=== PATIENT | female | born 1985 | race Caucasian/White ===

== ENCOUNTER 2025-04-07 18:00 | Emergency (ER) | payer MEDICAID ==
[~2025-04-07] VITALS: Ht 167.6 cm; Wt 66.0 kg
[2025-04-07 18:11] VITALS: O2SAT 99
[2025-04-07] MEDS ORDERED: FLUT9.9S BOTHNSTRLS (19:46)
[2025-04-07 21:17] VITALS: BP 95/65; PULSE 64; RESP 16; TEMP 36.8; O2SAT 98
== END 2025-04-07 21:21 | disposition home or self-care (01) ==
LOC: ER 18:00
DX: H69.93 Unspecified Eustachian tube disorder, bilateral (principal); H91.93 Unspecified hearing loss, bilateral; Z59.71 Insufficient health insurance coverage
CPT/HCPCS: 82962; 93005; 99283

== ENCOUNTER 2025-04-23 12:43 | Emergency (ER) | payer MEDICAID ==
[~2025-04-23] VITALS: Ht 162.6 cm; Wt 71.0 kg
[~2025-04-23 12:43] MED LIST: FLUT9.9S BOTHNSTRLS
[2025-04-23 13:03] VITALS: O2SAT 99
[2025-04-23] MEDS: LACTATED RINGERS 1,000 ML IV SCH (15:18)
[2025-04-23] MEDS: ACETAMINOPHEN 1000MG/100ML 100 ML IV ONE (15:18)
[2025-04-23] MEDS: METOCLOPRAMIDE HCL 10MG/2ML VIAL IV ONE (15:21)
[2025-04-23 15:30] LABS: BASOPHILS % 0.5 % (0.0-2.0); EOSINOPHILS % 0.2 % (0.0-5.0); HEMATOCRIT. 35.9 % (36.0-48.0); HEMOGLOBIN. 11.9 g/dL (12.0-16.0); LYMPHOCYTES % 9.6 % (20.0-50.0); MEAN PLATELET VOLUME 9.6 fl (7.4-10.4); MONOCYTES % 6.6 % (2.0-8.0); NEUTROPHILS % 83.1 % (40.0-76.0); PLATELET 249 x1000/uL (130-400); RED BLOOD CELL COUNT 4.04 mill/uL (4.2-5.4); RED CELL DISTRIBUTION WIDTH 13.3 % (11.6-14.6)
[2025-04-23 15:41] LABS: HCG SCREEN NEGATIVE
[2025-04-23 15:42] LABS: CREATININE 0.5 mg/dL (0.6-1.0); UREA NITROGEN BLOOD 8 mg/dL (9-23)
[2025-04-23 16:31] VITALS: BP 114/62; PULSE 66; RESP 17; TEMP 36.7; O2SAT 100
== END 2025-04-23 16:32 | disposition home or self-care (01) ==
LOC: ER 12:43 → CMPBEDREQ 04-24 08:20
DX: R51.9 Headache, unspecified (principal)
CPT/HCPCS: 99285; 96365; 70450; 96375; 80048; 84703; 85025; 36415; J2765; J0131

== ENCOUNTER 2025-04-25 14:30 | Emergency (ER) | payer MEDICAID ==
[~2025-04-25] VITALS: Ht 167.6 cm; Wt 66.0 kg
[2025-04-25 14:35] VITALS: TEMP 37; O2SAT 100
[2025-04-25] MEDS ORDERED: PROCHLORPERAZINE 10MG/2ML VIAL IV ONE (17:15)
[2025-04-25] MEDS: SODIUM CHLORIDE 0.9% 1,000 ML IV ONE (17:54)
[2025-04-25 18:24] LABS: HCG SCREEN NEGATIVE
[2025-04-25] MEDS: SUMATRIPTAN SUCCINATE 6MG/0.5ML VIAL SUBCUT ONE (18:28)
[2025-04-25] MEDS: DIPHENHYDRAMINE 50MG/ML VIAL IV ONE (18:29)
[2025-04-25] MEDS: KETOROLAC 30MG/ML VIAL IV ONE (18:29)
[2025-04-25] MEDS: METOCLOPRAMIDE HCL 10MG/2ML VIAL IV ONE (18:29)
[2025-04-25] MEDS: DEXAMETHASONE 10 MG/ML VIAL IV ONE (18:29)
[2025-04-25] MEDS ORDERED: SUMA100T16 MT (20:36)
[2025-04-25] MEDS ORDERED: KETO10TA2 MT (20:36)
[2025-04-25] MEDS ORDERED: MECLIZINE 25MG TABLET PO ONE (20:45)
[2025-04-25 20:48] VITALS: BP 120/75; PULSE 60; RESP 16; O2SAT 98
== END 2025-04-25 20:55 | disposition home or self-care (01) ==
LOC: ER 14:30
DX: G43.909 Migraine, unspecified, not intractable, without status migrainosus (principal); R11.0 Nausea; R42 Dizziness and giddiness
CPT/HCPCS: 99284; 96374; 96375; 96361; 84703; 96372; J1885; J1100; J1200; J2765; J0780; J3030; J7030

== ENCOUNTER 2025-06-08 10:30 | Emergency (ER) | payer MEDICAID ==
[~2025-06-08] VITALS: Ht 162.6 cm; Wt 75.0 kg
[~2025-06-08 10:30] MED LIST changes: +KETO10TA2 MT; +SUMA100T16 MT
[2025-06-08 10:34] VITALS: O2SAT 99
[2025-06-08 10:37] VITALS: BP 113/71; PULSE 71; RESP 18; TEMP 36.7; O2SAT 100
[2025-06-08 12:52] LABS: BASOPHILS % 0.7 % (0.0-2.0); EOSINOPHILS % 1.7 % (0.0-5.0); HEMATOCRIT. 37.5 % (36.0-48.0); HEMOGLOBIN. 12.6 g/dL (12.0-16.0); LYMPHOCYTES % 16.5 % (20.0-50.0); MEAN PLATELET VOLUME 9.7 fl (7.4-10.4); MONOCYTES % 6.7 % (2.0-8.0); NEUTROPHILS % 74.4 % (40.0-76.0); PLATELET 270 x1000/uL (130-400); RED BLOOD CELL COUNT 4.21 mill/uL (4.2-5.4); RED CELL DISTRIBUTION WIDTH 13.0 % (11.6-14.6)
[2025-06-08 13:09] LABS: CREATININE 0.6 mg/dL (0.6-1.0); UREA NITROGEN BLOOD 11 mg/dL (9-23)
[2025-06-08 13:10] LABS: HCG SCREEN NEGATIVE
[2025-06-08 14:10] LABS: ERYTHROCYTE SEDIMENTATION RATE 11 mm/hr (0-20)
== END 2025-06-08 14:11 | disposition left against medical advice (07) ==
LOC: ER 10:30 → CANBEDREQ 14:13
DX: H53.8 Other visual disturbances (principal); G43.909 Migraine, unspecified, not intractable, without status migrainosus; Z79.899 Other long term (current) drug therapy
CPT/HCPCS: 36415; 80048; 84703; 85025; 85651; 99283